=== PATIENT | male | born 1985 | race Caucasian/White ===

== ENCOUNTER 2017-06-26 14:10 | Emergency (ER) | payer OTHER ==
[~2017-06-26] VITALS: Ht 182.9 cm; Wt 101.8 kg
--- NOTE | 2017-06-26 16:07 | REP ---
Scrotal ultrasound: The testes are normal size. Right testis measures 4.5 x 2.5 x 2.7 meters. Left testis measures 4.7 x 2.5 x 2.8 cm. Testicular parenchyma is homogeneous. There are no testicular masses. There is vascular flow in both testes. The Doppler resistive index of the intraparenchymal arteries of the right testis is 0.67 and left testis 0.63. The right and left epididymal heads are normal size. There are no epididymal head cysts. With color Doppler assessment there is increased vascular flow in the left epididymal head compatible with epididymitis. There is a left hydrocele. Impression: There is vascular flow in both testes. There are no testicular masses. There is increased vascular flow in the left epididymis compatible with epididymitis. There is a left hydrocele. Signed by Vargas Peraza MD 06/26/2017 03:59 P
[2017-06-26] MEDS ORDERED: NAPR500T PO (16:09)
[2017-06-26] MEDS ORDERED: DOXY100C37 PO (16:09)
[2017-06-26] MEDS ORDERED: cefTRIAXone SOD 250 MG VIAL (J0696) IM ONE (16:15)
[2017-06-26 16:52] VITALS: BP 152/82
== END 2017-06-26 16:54 | disposition home or self-care (01) ==
LOC: M ED 14:10
DX: N45.1 Epididymitis (principal); N43.3 Hydrocele, unspecified; Z87.442 Personal history of urinary calculi; Z98.52 Vasectomy status
CPT/HCPCS: 76870; 81001; 87491; 87591; 93976; 96372; 99282; J0696

== ENCOUNTER → 2017-08-10 | Outpatient (REF) | payer OTHER ==
[~2017-08-10] MED LIST: DOXY100C37 PO; NAPR500T PO
[2017-08-10 15:08] LABS: IMMMOTILE SPERM CENTRIFUGED ABSENT (ABSENT); IMMOTILE SPERM ABSENT (ABSENT); MOTILE SPERM ABSENT (ABSENT); MOTILE SPERM CENTRIFUGED ABSENT (ABSENT)
== END ==
LOC: M SMT 14:47
PROVIDERS: ATTEND Urology
DX: Z30.2 Encounter for sterilization (principal)

== ENCOUNTER 2018-03-11 16:46 | Emergency (ER) | payer OTHER ==
[2018-03-11] MEDS: ONDANSETRON 4MG/2ML VIAL (J2405) IV (18:00)
[2018-03-11] MEDS: NS 1,000 ML IV (18:00)
[2018-03-11 18:32] LABS: KETONE, URINE AUTO RFX NEGATIVE (NEGATIVE); LEUKOCYTE ESTERASE UR AUTO RFX NEGATIVE (NEGATIVE); MUCUS, URINE RFX SMALL (NEGATIVE); NITRITE, URINE AUTO RFX NEGATIVE (NEGATIVE); RBC, URINE AUTO RFX 4 /HPF (0-3); SPECIFIC GRAVITY UR AUTO RFX 1.026 (1.002-1.035); SQUAM EPITHELIAL CELL UR AURFX 0 /HPF (0-6); WBC, URINE AUTO RFX 1 /HPF (0-3)
[2018-03-11 18:36] LABS: BASO % 0.3 % (0.0-1.0); EOS # 0.1 10^3/uL (0.0-0.50); EOS % 0.5 % (0.0-3.0); HEMATOCRIT 43.7 % (42.0-52.0); HEMOGLOBIN 15.3 g/dl (13.5-17.5); IMMATURE GRANULOCYTE % 0.3 % (0-3.0); LYMPH # 2.1 10^3/uL (1.5-4.5); LYMPH % 17.3 % (24.0-44.0); MEAN CORPUSCULAR HEMOGLOBIN 30.5 pg (27.0-33.0); MEAN CORPUSCULAR VOLUME 87.2 fl (80.0-96.0); MONO # 0.6 10^3/uL (0.0-0.8); MONO % 5.3 % (0.0-5.0); NEUTROPHILS % 76.3 % (36.0-66.0); PLATELET COUNT, AUTOMATED 269 10^3/uL (150-450); RED BLOOD COUNT 5.01 10^6/uL (4.30-6.10); RED CELL DISTRIBUTION WIDTH 13.1 % (11.5-14.5); WHITE BLOOD COUNT 11.8 10^3/uL (4.0-10.0)
[2018-03-11] MEDS: MORPHINE 2 MG/ML 1ML SYRINGE (J2270) IV ×2 (18:37→19:04)
[2018-03-11 19:04] LABS: ALBUMIN 4.2 GM/DL (3.2-5.2); ALBUMIN/GLOBULIN RATIO 1.11 (1.00-1.93); ALKALINE PHOSPHATASE 65 U/L (45-117); ALT/SGPT 46 U/L (12-78); ANION GAP 6 MEQ/L (8-16); AST/SGOT 25 U/L (7-37); BILIRUBIN,DIRECT 0.1 MG/DL (0.0-0.2); BILIRUBIN,TOTAL 0.8 MG/DL (0.2-1.0); BLOOD UREA NITROGEN 10 MG/DL (7-18); CARBON DIOXIDE LEVEL 30 MEQ/L (21-32); CHLORIDE LEVEL 103 MEQ/L (98-107); CREATININE FOR GFR 1.04 MG/DL (0.70-1.30); GLOMERULAR FILTRATION RATE > 60.0 (>60); GLUCOSE, FASTING 90 MG/DL (70-100); LIPASE 205 U/L (73-393); POTASSIUM SERUM 3.6 MEQ/L (3.5-5.1); SODIUM LEVEL 139 MEQ/L (136-145)
[2018-03-11] MEDS: ACETAMINOPHEN 325 MG TAB PO (19:15)
[2018-03-11] MEDS ORDERED: ISOVUE-370 76% 100ML VIAL (Q9967) As Ordered (19:26)
[2018-03-11] MEDS: KETOROLAC 30 MG/ML VIAL (J1885) IV (20:08)
== END 2018-03-11 20:42 | disposition home or self-care (01) ==
LOC: M ED 16:46
DX: A02.0 Salmonella enteritis (principal); Z87.442 Personal history of urinary calculi
CPT/HCPCS: J2405

== ENCOUNTER 2018-03-12 19:22 | Emergency (ER) | payer OTHER ==
[2018-03-12] MEDS: NS 1,000 ML IV ×2 (20:08→22:00)
[2018-03-12 20:11] LABS: BASO % 0.3 % (0.0-1.0); EOS # 0.2 10^3/uL (0.0-0.50); EOS % 2.2 % (0.0-3.0); HEMOGLOBIN 14.3 g/dl (13.5-17.5); IMMATURE GRANULOCYTE % 0.2 % (0-3.0); LYMPH # 1.5 10^3/uL (1.5-4.5); LYMPH % 15.2 % (24.0-44.0); MEAN CORPUSCULAR HEMOGLOBIN 30.5 pg (27.0-33.0); MEAN CORPUSCULAR HGB CONC 34.9 g/dl (32.0-36.5); MEAN CORPUSCULAR VOLUME 87.4 fl (80.0-96.0); MONO # 0.6 10^3/uL (0.0-0.8); MONO % 6.6 % (0.0-5.0); NEUTROPHILS # 7.3 10^3/uL (1.8-7.7); NEUTROPHILS % 75.5 % (36.0-66.0); PLATELET COUNT, AUTOMATED 204 10^3/uL (150-450); RED BLOOD COUNT 4.69 10^6/uL (4.30-6.10); RED CELL DISTRIBUTION WIDTH 13.2 % (11.5-14.5); WHITE BLOOD COUNT 9.6 10^3/uL (4.0-10.0)
[2018-03-12 20:38] LABS: ALBUMIN 3.7 GM/DL (3.2-5.2); ALBUMIN/GLOBULIN RATIO 1.19 (1.00-1.93); ALKALINE PHOSPHATASE 56 U/L (45-117); ALT/SGPT 36 U/L (12-78); ANION GAP 6 MEQ/L (8-16); AST/SGOT 22 U/L (7-37); BILIRUBIN,DIRECT 0.2 MG/DL (0.0-0.2); BILIRUBIN,TOTAL 0.6 MG/DL (0.2-1.0); BLOOD UREA NITROGEN 7 MG/DL (7-18); CALCIUM LEVEL 8.5 MG/DL (8.5-10.1); CARBON DIOXIDE LEVEL 28 MEQ/L (21-32); CHLORIDE LEVEL 108 MEQ/L (98-107); CREATININE FOR GFR 0.99 MG/DL (0.70-1.30); GLOMERULAR FILTRATION RATE > 60.0 (>60); GLUCOSE, FASTING 95 MG/DL (70-100); LIPASE 187 U/L (73-393); POTASSIUM SERUM 3.8 MEQ/L (3.5-5.1); SODIUM LEVEL 142 MEQ/L (136-145); TOTAL PROTEIN 6.8 GM/DL (6.4-8.2)
[2018-03-12] MEDS: CIPROFLOXACIN 400 MG in APPROPRIATE DILUENT 1 EA IV (20:46)
[2018-03-12] MEDS: KETOROLAC 30 MG/ML VIAL (J1885) IV (21:24)
== END 2018-03-12 23:38 | disposition home or self-care (01) ==
LOC: M ED 19:22
DX: A02.0 Salmonella enteritis (principal)
CPT/HCPCS: J1885